=== PATIENT | male | born 1960 | race African-American/Black ===

== ENCOUNTER → 2017-06-01 | Outpatient (CLI) | payer OTHER ==
[~2017-06-01] MED LIST: ALDACTONE25 MG PO; AMLODIPINE-ATO1 EAC5 PO; ASPIRIN325 PO; COLACE100 MG PO; GLUCOSAMINE &1 EAC1 PO; HYDROCHLOROTHIA25 M1 PO; HYDROCODONE-APA1 TA1 PO; LAMISIL250 MG PO; LIPITOR 20 MG T20 M1 PO; MAXZIDE-25 MG1 EACH PO; MS CONTIN15 MG PO; NORCO 10-325 T1 EACH PO; NORCO 7.5-3251 EACH PO; PROMETHAZINE HC25 M1 PO; ROBAXIN 750 MG750 M1 PO; VITAMIN D31000 UNI2 PO; ZANTAC300 MG PO
== END ==
LOC: RAD 09:51
DX: R05 Cough (principal)

== ENCOUNTER 2017-10-29 19:30 | Inpatient (IN) | payer OTHER ==
[~2017-10-29] VITALS: Ht 180.3 cm; Wt 94.6 kg
--- NOTE | ~2017-10-29 | EKG ---
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1960 Requested By: Tonio Oshea Order Number: [id number] MD: Niall Rodriguez Measurements Intervals [place] Rate: 51 P: 8 MA: 219 QRS: -21 QRSD: 95 T: -12 QT: 478 QTc: 441 Interpretive Statements Sinus rhythm Prolonged MA interval Borderline left axis deviation Borderline T abnormalities, inferior leads Compared to ECG 03/28/2014 13:30:07 First degree AV block now present Sinus bradycardia no longer present T-wave abnormality still present Electronically Signed On 10-29-2017 21:56:11 CDT by Niall Rodriguez [email or web address] <ELECTRONICALLY SIGNED> By: Niall Rodriguez MD 10/29/17 2156 29 29 Niall Rodriguez MD /EPI
--- NOTE | ~2017-10-29 | EXE ---
[facility] [employer] [employer] [place] [address] STRESS ECHOCARDIOGRAM Name: JANNETTESUPRIYA Room #: 215-P ADM IN M.R.#: [id number] Admission: 10/29/17 Attend Phys: Roldan Holland, Discharge: Date of : 60 Date of Service: 10/30/17 0947 Report #: [id number] THIS REPORT FOR: //name// APPROVED REPORT Study performed: 10/30/2017 08:27:06 Exam: Stress Echocardiogram Indication: Chest pain, dyspnea Patient Location: Echo lab Stress Nurse: Luzmaria Estrada RN Room #: 215 Status: routine Ht: 5 ft 11 in HR: 57 bpm BP: 127/84 mmHg Rhythm: NSR Medical History Medications: Listed on worksheet Allergies: Listed on worksheet Cardiac Risk Factors: HTN, Hyperlipidemia Procedure The patient underwent an Exercise Stress Test using the Varun Protocol. Blood pressure, heart rate, and EKG were monitored. An Echocardiogram was performed by smog technician in four stages in quad fashion. At peak stress, four selected images were obtained and placed side by side with resting images for comparison. Stress Test Details Stress Test: Exercise stress testing was performed using a Varun protocol. HR Resting HR: 57 bpm Max Heart Rate (APMHR): 163 bpm Max HR Achieved: 153 bpm Target HR (85% APMHR): 138 bpm % of APMHR: 93 Recovery HR: 86 bpm HR response to stress: Normal HR response to stress BP Resting BP: 127/84 mmHg Max BP: 178/81 mmHg Recovery BP: 140/82 mmHg [facility] [address] [place] [address] STRESS ECHOCARDIOGRAM Name: SUPRIYA BHATIA Room #: 215-P [facility] IN .R.#: [id number] Admission: 10/29/17 Attend Phys: Roldan Holland, Discharge: Date of : 60 Date of Service: 10/30/17 0947 Report #: [id number] ECG Resting ECG: Sinus Rhythm Stress ECG: Sinus Tachycardia Arrhythmia: None Recovery ECG: Sinus Rhythm Clinical Reason for Termination: Fatigue Stress Symptoms: None Exercise duration: 13 min 12 sec Highest Stage Achieved: Stage 5: 5.0 mph at 18% grade. Exercise capacity: 17.50 METs Stress ECG Conclusion 1. Subjectively Negative for Ischemia 2. Electrocardiographically negative for ischemia 3. Excellent Functional Capacity Pre-Stress Echo The resting Echocardiogram showed normal left ventricular contractility with an estimated Ejection Fraction of about 55-60%. Mild MR, TR. Ascending aorta is mildly dilated at 4.0cm. Normal wall motion in all segments on baseline images. Post-Stress Echo The stress Echocardiogram showed normal left ventricular contractility with an estimated Ejection Fraction of about >70%. Normal augmentation of wall motion in all segments on post stress images. Clinical Normal augmentation of myocardial wall segments using a 17 segment model. Conclusion Clinical Response: Non-ischemic Exercise Capacity: Superior Stress ECG Response: Non-ischemic Stress Echo Images: Non-ischemic 1. Low Risk Study Other Information Study Quality: Good [facility] [address] [place] [address] STRESS ECHOCARDIOGRAM Name: SUPRIYA BHATIA Room #: 215-P ADM IN .R.#: [id number] Admission: 10/29/17 Attend Phys: Roldan Holland, Discharge: Date of : 60 Date of Service: 10/30/17946 Report #: [id number] <Conclusion> 1. Low Risk Study <ELECTRONICALLY SIGNED> By: Boubacar Bah MD 10/30/1747 6 6 Boubacar Bah MD /INF
[~2017-10-29 19:30] MED LIST changes: -MAXZIDE-25 MG1 EACH PO; -ZANTAC300 MG PO
[2017-10-29 19:41] VITALS: BP 117/83
[2017-10-29 20:10] LABS: ABSOLUTE NEUTROPHILS 3.2 thou/uL (1.4-8.2); BASOPHILS 0.9 % (0.0-2.0); EOSINOPHILS 2.9 % (0.0-3.0); HEMATOCRIT 39.8 % (42.0-52.0); HEMOGLOBIN 13.7 gm/dL (14.0-18.0); LYMPHOCYTES 27.6 % (24.0-44.0); MCH 31.2 pg (26.0-34.0); MCHC 34.4 g/dL (28.0-37.0); MCV 90.6 fL (80.0-100.0); MONOCYTES 9.9 % (1.0-8.0); PLATELET COUNT 212 thou/uL (150-400); POLYS 58.7 % (36.0-66.0); RDW 12.3 % (10.5-14.5); WBC 5.5 thou/uL (4.0-11.0)
[2017-10-29 20:13] LABS: ANION GAP 8 mmol/L (7-16); BUN 29 mg/dL (7-18); CALCIUM 9.7 mg/dL (8.5-10.1); CHLORIDE 105 mmol/L (98-107); CO2 27 mmol/L (21-32); CREATININE 1.8 mg/dL (0.7-1.3); GLUCOSE 97 mg/dL (74-106); POTASSIUM 4.2 mmol/L (3.5-5.1); SODIUM 140 mmol/L (136-145)
[2017-10-29 20:22] LABS: ALBUMIN 3.8 g/dL (3.4-5.0); SGOT 29 U/L (15-37); SGPT 41 U/L (30-65); TOTAL BILIRUBIN 0.6 mg/dL (<0.1-1.0); TOTAL PROTEIN 7.6 g/dL (6.4-8.2); TROPONIN-I < 0.04 ng/mL (<0.06)
[2017-10-29 20:49] VITALS: BP 134/68
[2017-10-29 23:27] VITALS: BP 148/83
[2017-10-30 00:02] VITALS: BP 146/90
[2017-10-30] MEDS ORDERED: MAXZIDE-25 MG1 EACH PO (01:07)
[2017-10-30] MEDS ORDERED: ZANTAC300 MG PO (01:07)
[2017-10-30 04:47] VITALS: BP 127/84
[2017-10-30 07:35] VITALS: BP 142/87
[2017-10-30 11:30] VITALS: BP 132/92
[2017-10-30 14:10] VITALS: BP 132/92
== END 2017-10-30 14:39 | disposition home or self-care (01) | DRG 313 ==
LOC: ER 19:30 → EROBS 20:48 → 2N 20:48
PROVIDERS: Physician Assistant
DX: R07.9 Chest pain, unspecified (principal); I10 Essential (primary) hypertension; E78.00 Pure hypercholesterolemia, unspecified; Z96.652 Presence of left artificial knee joint; E78.5 Hyperlipidemia, unspecified; Z85.528 Personal history of other malignant neoplasm of kidney; Z90.5 Acquired absence of kidney; Z88.6 Allergy status to analgesic agent; Z88.8 Allergy status to other drugs, medicaments and biological substances; Z79.899 Other long term (current) drug therapy
CPT/HCPCS: 10081

== ENCOUNTER → 2018-08-31 | Outpatient (CLI) | payer OTHER ==
[~2018-08-31] MED LIST changes: +MAXZIDE-25 MG1 EACH PO; +ZANTAC300 MG PO
== END ==
LOC: MRI 14:46
DX: S43.431A Superior glenoid labrum lesion of right shoulder, initial encounter (principal); M19.011 Primary osteoarthritis, right shoulder; M25.411 Effusion, right shoulder; M25.711 Osteophyte, right shoulder; M75.21 Bicipital tendinitis, right shoulder; M62.511 Muscle wasting and atrophy, not elsewhere classified, right shoulder; X58.XXXA Exposure to other specified factors, initial encounter; Y93.89 Activity, other specified; Y92.89 Other specified places as the place of occurrence of the external cause; Y99.8 Other external cause status

== ENCOUNTER → 2019-12-06 | Outpatient (CLI) | payer OTHER | LOC: CAT 15:39 | PROVIDERS: ATTEND Internal Medicine Cardiovascular Disease | DX: Z13.6 Encounter for screening for cardiovascular disorders (principal); I25.10 Atherosclerotic heart disease of native coronary artery without angina pectoris; E78.00 Pure hypercholesterolemia, unspecified ==

== ENCOUNTER → 2019-12-20 | Outpatient (CLI) | payer OTHER | LOC: SJCVCIMAG 08:56 | PROVIDERS: ATTEND Internal Medicine Cardiovascular Disease | DX: I08.8 Other rheumatic multiple valve diseases (principal); R94.31 Abnormal electrocardiogram [ECG] [EKG]; Z82.49 Family history of ischemic heart disease and other diseases of the circulatory system ==

== ENCOUNTER → 2020-06-21 | Outpatient (CLI) | payer OTHER | LOC: SJCVC 13:52 | PROVIDERS: ATTEND Internal Medicine Cardiovascular Disease | DX: R94.31 Abnormal electrocardiogram [ECG] [EKG] (principal); R93.1 Abnormal findings on diagnostic imaging of heart and coronary circulation; I12.9 Hypertensive chronic kidney disease with stage 1 through stage 4 chronic kidney disease, or unspecified chronic kidney disease; N18.30 Chronic kidney disease, stage 3 unspecified; E78.5 Hyperlipidemia, unspecified; R00.1 Bradycardia, unspecified; Z82.49 Family history of ischemic heart disease and other diseases of the circulatory system; M10.9 Gout, unspecified; Z72.89 Other problems related to lifestyle; Z79.899 Other long term (current) drug therapy; Z88.5 Allergy status to narcotic agent; Z88.6 Allergy status to analgesic agent ==

== ENCOUNTER 2020-09-03 11:24 | Inpatient (IN) | payer OTHER ==
[2020-09-03] VITALS (7 sets, daily range): BP systolic 172–210; BP diastolic 99–131
[~2020-09-03] VITALS: Ht 180.3 cm; Wt 94.3 kg
[2020-09-03 12:09] LABS: ABSOLUTE NEUTROPHILS 3.9 thou/uL (1.4-8.2); BASOPHILS 0.7 % (0.0-2.0); EOSINOPHILS 2.5 % (0.0-3.0); HEMATOCRIT 39.6 % (42.0-52.0); HEMOGLOBIN 13.7 gm/dL (14.0-18.0); LYMPHOCYTES 23.7 % (24.0-44.0); MCH 31.5 pg (26.0-34.0); MCHC 34.5 g/dL (28.0-37.0); MCV 91.3 fL (80.0-100.0); MONOCYTES 8.2 % (1.0-8.0); PLATELET COUNT 191 thou/uL (150-400); POLYS 64.9 % (36.0-66.0); RBC 4.33 mil/uL (4.50-6.00); RDW 12.3 % (10.5-14.5)
[2020-09-03 12:18] LABS: ANION GAP 8 mmol/L (7-16); BUN 20 mg/dL (7-18); CHLORIDE 108 mmol/L (98-107); CO2 27 mmol/L (21-32); CREATININE 1.3 mg/dL (0.7-1.3); GLUCOSE 101 mg/dL (74-106); POTASSIUM 3.9 mmol/L (3.5-5.1); SODIUM 143 mmol/L (136-145)
[2020-09-03 12:23] LABS: APTT 25.2 Seconds (24.5-32.8)
[2020-09-03 12:29] LABS: ALBUMIN 3.7 g/dL (3.4-5.0); SGOT 23 U/L (15-37); SGPT 36 U/L (16-63); TOTAL BILIRUBIN 0.4 mg/dL (0.2-1.0); TOTAL PROTEIN 7.5 g/dL (6.4-8.2); TROPONIN-I <0.06 ng/mL (<0.06)
[2020-09-03] MEDS ORDERED: ALLOPURINOL 10100 M1 PO (14:30)
[2020-09-03] MEDS ORDERED: ROSUVASTATIN CA10 MG PO (14:32)
[2020-09-03] MEDS ORDERED: EDARBI40 MG PO (14:34)
[2020-09-03] MEDS ORDERED: BYSTOLIC10 MG PO (14:35)
[2020-09-03] MEDS ORDERED: FAMOTIDINE20 MG PO (14:37)
[2020-09-04] VITALS (9 sets, daily range): BP systolic 168–199; BP diastolic 86–131
--- NOTE | 2020-09-04 04:06 | NUR ---
ASSUMED CARE AT 1900. PT C/O NAUSEA, HAVING INTERMIT VOMITING. EMESIS IS BROWN/CLEAR BILE COLORED. C/O SEVERE HEADACHE AND SOME PAIN IN LEFT NECK DOWN INTO ARM. FOR NAUSEA, HAVE GIVEN PT ZOFRAN IVP, PHENERGAN SUPPOSITORY, IV BENADRYL, AND IVF; HAVE TRIED TO CONTROL ELEVATED BP W/IVP HYDRALAZINE. PT REPORTS NOTHING HAS HELPED, STATES EVERYTHING HE HAS BEEN GIVEN IV HAS MADE HIM THROW UP; HAVE EDUCATED AT LENGTH THAT IT IS VERY IMPORTANT TO GET BP UNDER CONTROL AND THAT IV ZOFRAN ISN'T GOING TO MAKE HIM THROW UP, BUT HE REFUSES ANY FURTHER DOSES OF HYDRALAZINE OR ZOFRAN. SPOKE W/DR. KULKARNI ABOUT 0300; HE ORDERED A ONE TIME DOSE OF IV ATIVAN TO HELP PT CALM DOWN, EASE NAUSEA, AND LOWER BP. PT ONLY AGREED TO TAKE THIS MED BC IT WAS THE FIRST TIME HE HAD RECEIVED IT. WILL CONTINUE TO MONITOR.
--- NOTE | 2020-09-04 09:27 | EKG ---
[place] [address] [facility] [employer] [place] [address] ELECTROCARDIOGRAM REPORT Name: SUPRIYA BHATIA Room #: 208-P ADM IN M.R.#: [id number] Admission: 09/03/20 Attend Phys: Roldan Holland MD Discharge: Date of : 60 Report #: [id number] [facility] ED Test Date: 2020-09-03 Test Time: 11:32:09 Pat Name: SUPRIYA BHATIA Department: Room: 208 Gender: M [employer]: rafiq : 1960 Requested By: Jason Burden Order Number: [id number] MD: Lukasz Valentin Measurements Intervals [place] Rate: 69 P: 22 OK: 217 QRS: -33 QRSD: 93 T: -21 QT: 455 QTc: 488 Interpretive Statements Sinus rhythm Prolonged [place] interval Left ventricular hypertrophy Abnrm T, consider ischemia, anterolateral lds Compared to ECG 10/29/2017 19:30:12 T wave abnormality is now present Electronically Signed On 09-04-2020 9:27:26 CDT by Lukasz Valentin [email or web address] <ELECTRONICALLY SIGNED> By: Lukasz Valentin MD, [facility] 09/04/20926 1132 113 Lukasz Valentin MD, [facility] /EPI
--- NOTE | 2020-09-04 09:56 | 2DMMODE ---
[facility] [place] [address] 2 D/M-MODE ECHOCARDIOGRAM Name: SUPRIYA BHATIA Room #: 208-P ADM IN M.R.#: [id number] Admission: 09/03/20 Attend Phys: Roldan Holland MD Discharge: Date of : 60 Report #: [id number] THIS REPORT FOR: cc: Roldan Holland MD, Neal A. MD Lammoglia, Francisco J. MD ~ APPROVED REPORT Study performed: 09/04/2020 07:32:33 EXAM: Comprehensive 2D, Doppler, and color-flow Echocardiogram Patient Location: Bedside Room #: 208 Status: routine BSA: 2.12 HR: 86 bpm BP: 199/107 mmHg Rhythm: NSR Other Information Study Quality: Adequate Indications Chest Pain Hypertensive urgency. Hx: Elevated calcium score, HTN, HLP. 2D Dimensions RVDd: 38.34 mm IVSd: 21.30 (7-11mm) LVOT Diam: 26.44 (18-24mm) LVDd: 38.80 mm PWd: 13.61 (7-11mm) Ascending Ao: 40.73 (22-36mm) LVDs: 19.26 (25-40mm) Aortic Root: 41.06 mm Volumes Left Atrial Volume (Systole) Single Plane 4CH: 50.98 mL Single Plane 2CH: 63.89 mL LA ESV Index: 30.00 mL/m2 Aortic Valve AoV Peak Amaury.: 1.41 m/s AO Peak Gr.: 7.96 mmHg LVOT Max P.17 mmHg LVOT Max V: 1.24 m/s [facility] [address] [place] [address] 2 D/M-MODE ECHOCARDIOGRAM Name: SUPRIYA BHATIA Room #: 208-P [facility].#: [id number] Admission: 09/03/20 Attend Phys: Roldan Holland, Discharge: Date of : 60 Report #: [id number] MITCHEL Vmax: 4.83 cm2 Pulmonary Valve PV Peak Amaury.: 1.06 m/s PV Peak Gr.: 4.47 mmHg Pulmonary Vein P Vein S: 0.46 m/s P Vein A: 0.34 m/s P Vein D: 0.53 m/s P Vein A Dur.: 110.7 msec P Vein S/D Ratio: 0.87 Tricuspid Valve TR Peak Amaury.: 2.51 m/s TR Peak Gr.: 25.25 mmHg Left Ventricle The left ventricle is normal size. There is normal LV segmental wall motion. Mild concentric left ventricular hypertrophy. Moderate basal septal hypertrophy is present. Left ventricular systolic function is normal. LVEF is 60-65%. This study is not technically sufficient to allow evaluation of the LV diastolic function. Right Ventricle The right ventricle is normal size. The right ventricular systolic function is normal. Atria The left atrium size is normal. The right atrium size is normal. Aortic Valve Aortic valve is trileaflet; mildy thickened. No aortic regurgitation is present. There is no aortic valvular stenosis. Mitral Valve The mitral valve is normal in structure. There is no mitral valve regurgitation noted. No evidence of mitral valve stenosis. Tricuspid Valve The tricuspid valve is normal in structure. Trace tricuspid regurgitation. Estimated PAP is 25mmHg plus the right atrial pressure. Pulmonic Valve The pulmonary valve is normal in structure. Trace pulmonic regurgitation. [facility] [place] [address] 2 D/M-MODE ECHOCARDIOGRAM Name: JANNETTESUPRIYA Room #: 208-P ADM IN M.R.#: [id number] Admission: 09/03/20 Attend Phys: Roldan Holland, Discharge: Date of : 60 Report #: [id number] Great Vessels Aortic root and ascending aorta are dilated (4.1cm). IVC is not well visualized. Pericardium There is no pericardial effusion. <Conclusion> The left ventricle is normal size. Mild concentric left ventricular hypertrophy. Moderate basal septal hypertrophy is present. LVEF is 60-65%. Aortic valve is trileaflet; mildy thickened. No aortic regurgitation is present. The mitral valve is normal in structure. The tricuspid valve is normal in structure. Trace tricuspid regurgitation. Estimated PAP is 25mmHg plus the right atrial pressure. The pulmonary valve is normal in structure. Trace pulmonic regurgitation. Aortic root and ascending aorta are dilated (4.1cm). There is no pericardial effusion. <ELECTRONICALLY SIGNED> By: Boubacar Bah MD 09/04/20955 5 5 Boubacar Bah MD /INF
--- NOTE | 2020-09-04 17:47 | NUR ---
PT REMAINED SLEEPY TODAY. FAMILY REQUEST NO SEDATING MEDS. TREATED WITHTYLENOL FOR HEADACHE.
[2020-09-05 05:45] VITALS: BP 176/88
--- NOTE | 2020-09-05 07:41 | NUR ---
PATIENTS CARES WERE ASSUMED AT SHIFT CHANGE. PATIENT WAS ASSESSED AND MEDS WERE PASSED. PATIENT REFUSED HIS MORNING MEDS AND STATED THAT THE DOCTOR DID STOP THE MED. NURSING DOCUMENTED REFUSSED DUE TO ORDER NOT WRITEN. PATIENT DID HAVE A EMISIS AFTER A HYDROLOZINE DOSE THIS SHIFT. ROUNDS WERE DONE. PATIENT B/P IS STILL HIGH. BED IS IN A LOCKED POSITION.
[2020-09-05] MEDS ORDERED: BYSTOLIC20 MG PO (07:54)
[2020-09-05] MEDS ORDERED: NORVASC5 MG PO (07:55)
[2020-09-05] MEDS ORDERED: LORAZEPAM 1 MG T1 MG PO (07:55)
[2020-09-05] MEDS ORDERED: ALDACTONE50 MG PO (07:55)
[2020-09-05 08:36] VITALS: BP 159/85
--- NOTE | 2020-09-05 08:58 | NUR ---
ASSUMED PT CARE AT 0700. PT ASSESSMENT PERFORMED CHARTED. PT STATES HE IS READY TO BE D/C.
[2020-09-05 09:54] VITALS: BP 159/85
== END 2020-09-05 11:25 | disposition home or self-care (01) | DRG 305 ==
LOC: ER 11:24 → 2N 13:20 → EROBS 13:20 → 2N 14:09
PROVIDERS: Emergency Medicine; ADMIT Family Medicine; ATTEND Family Medicine
DX: I16.0 Hypertensive urgency (principal); E78.00 Pure hypercholesterolemia, unspecified; M54.12 Radiculopathy, cervical region; Z96.652 Presence of left artificial knee joint; E78.5 Hyperlipidemia, unspecified; M79.602 Pain in left arm; M10.9 Gout, unspecified; N18.9 Chronic kidney disease, unspecified; I12.9 Hypertensive chronic kidney disease with stage 1 through stage 4 chronic kidney disease, or unspecified chronic kidney disease; Z85.528 Personal history of other malignant neoplasm of kidney; Z90.5 Acquired absence of kidney; Z88.6 Allergy status to analgesic agent; Z82.49 Family history of ischemic heart disease and other diseases of the circulatory system
CPT/HCPCS: 10081

== ENCOUNTER 2020-09-05 21:43 | Emergency (ER) | payer OTHER ==
[~2020-09-05] VITALS: Ht 180.3 cm; Wt 93.9 kg
[~2020-09-05 21:43] MED LIST changes: +ALDACTONE50 MG PO; +ALLOPURINOL 10100 M1 PO; +BYSTOLIC10 MG PO; +BYSTOLIC20 MG PO; +EDARBI40 MG PO; +FAMOTIDINE20 MG PO; +LORAZEPAM 1 MG T1 MG PO; +NORVASC5 MG PO; +ROSUVASTATIN CA10 MG PO
[2020-09-05 22:50] LABS: ABSOLUTE NEUTROPHILS 5.6 thou/uL (1.4-8.2); BASOPHILS 0.6 % (0.0-2.0); EOSINOPHILS 0.4 % (0.0-3.0); HEMATOCRIT 41.9 % (42.0-52.0); HEMOGLOBIN 14.1 gm/dL (14.0-18.0); LYMPHOCYTES 16.4 % (24.0-44.0); MCH 30.8 pg (26.0-34.0); MCHC 33.6 g/dL (28.0-37.0); MCV 91.6 fL (80.0-100.0); PLATELET COUNT 218 thou/uL (150-400); POLYS 72.6 % (36.0-66.0); RBC 4.57 mil/uL (4.50-6.00); RDW 12.3 % (10.5-14.5); WBC 7.7 thou/uL (4.0-11.0)
[2020-09-05 22:52] LABS: ANION GAP 10 mmol/L (7-16); BUN 22 mg/dL (7-18); CALCIUM 8.9 mg/dL (8.5-10.1); CHLORIDE 102 mmol/L (98-107); CO2 28 mmol/L (21-32); CREATININE 1.5 mg/dL (0.7-1.3); GLUCOSE 144 mg/dL (74-106); POTASSIUM 3.2 mmol/L (3.5-5.1); SODIUM 140 mmol/L (136-145)
[2020-09-05 23:02] LABS: ALBUMIN 3.5 g/dL (3.4-5.0); SGOT 27 U/L (15-37); SGPT 38 U/L (30-65); TOTAL BILIRUBIN 0.8 mg/dL (0.2-1.0); TOTAL PROTEIN 7.1 g/dL (6.4-8.2); TROPONIN-I <0.06 ng/mL (<0.06)
[2020-09-05 23:27] VITALS: BP 180/98
--- NOTE | 2020-09-06 07:10 | EKG ---
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1960 Requested By: Raymond Hylton Order Number: [id number] MD: Zack Nicolas Measurements Intervals [place] Rate: 56 P: -6 OR: 225 QRS: -40 QRSD: 98 T: 186 QT: 487 QTc: 471 Interpretive Statements Sinus rhythm Prolonged OR interval LAE, consider biatrial enlargement LVH with secondary repolarization abnormality Compared to ECG 09/03/2020 11:32:09 Early repolarization now present Possible ischemia no longer present Electronically Signed On 09-06-2020 7:10:33 CDT by Zack Nicolas [email or web address] <ELECTRONICALLY SIGNED> By: Zack Nicolas MD, [facility] 09/06/20 0710 24 24 Zack Nicolas MD, [facility] /EPI
== END 2020-09-05 23:32 | disposition home or self-care (01) ==
LOC: ER 21:43
PROVIDERS: Emergency Medicine
DX: I10 Essential (primary) hypertension (principal); E78.00 Pure hypercholesterolemia, unspecified; Z88.5 Allergy status to narcotic agent; Z79.899 Other long term (current) drug therapy; Z98.890 Other specified postprocedural states

== ENCOUNTER → 2020-11-15 | Outpatient (CLI) | payer OTHER | LOC: MRI 09:28 | PROVIDERS: ATTEND Family Medicine | DX: M47.22 Other spondylosis with radiculopathy, cervical region (principal); M48.02 Spinal stenosis, cervical region; M50.123 Cervical disc disorder at C6-C7 level with radiculopathy; M47.812 Spondylosis without myelopathy or radiculopathy, cervical region ==

== ENCOUNTER → 2021-03-22 | Outpatient (CLI) | payer OTHER | END | disposition home or self-care (01) | LOC: ULTRA 08:40 | PROVIDERS: ATTEND Nurse Practitioner | DX: K80.20 Calculus of gallbladder without cholecystitis without obstruction (principal) ==